=== PATIENT | male | born 1995 | race Caucasian/White ===

== ENCOUNTER 2019-11-24 11:38 | Emergency (ER) | payer OTHER ==
--- OUTSIDE RECORDS SUMMARY | 2019-11-24 11:44 | XMS REPORT ---
:1995 Author Organization [facility] t Address [address] [place] [address] Dr. [address] [place] [id number] Care Team Providers Name Role Phone Unavailable Unavailable Unavailable Problems This patient has no known problems. Allergies, Adverse Reactions, Alerts This patient has no known allergies or adverse reactions. Medications This patient has no known medications. Procedures This patient has no known procedures. Encounters Start End Encounter Admission Attending Care Care Encounter Source Date/Time Date/Time Type Type Clinicians Facility Department ID 2019-05-21 2019-05-21 Outpatient [facility] - [facility] - [id number] Rheumat 09:23:00 09:23:00 Rheumatol Rheumatolog [facility]logy [facility] 2019-01-26 2019-01-26 Outpatient [facility] - [facility] - [id number] Rheumat 15:25:00 15:25:00 Rheumatol Rheumatolog [facility]logy [facility] 2019-01-22 2019-01-22 Outpatient PRL - PRL - [id number] Rheumat 11:45:00 11:45:00 Rheumatol Rheumatolog [facility]logy [facility] Results This patient has no known results.
--- OUTSIDE RECORDS SUMMARY | 2019-11-24 11:44 | XMS REPORT | Continuity of Care Document ---
:1995 Author Organization [facility] Care Team Providers Name Role Phone [facility] Unavailable Un available Problems Problem Status Onset Classification Date Comments Sourc e Date Reported Chronic gout Active Problem 05/22/2019 [facility] Pain in joint Active Diagnosis 02/15/2019 [facility] multiple sites Medications Medication Details Route Status Patient Ordering Order Source Instructions Provider Date Meloxicam 1 tablet Orally Active 15 MG Orally Vo 01/28/20 [facility] day [facility] PredniSONE 1 tablet Orally Active 20 mg Orally Vo 01/23/20 [facility] Allopurinol 1 tablet Orally Active 300 MG Orally Vo [facility] twice a day of [facility] (bid) Colchicine 2 with orally Active 0.6 MG orally Vo [facility] flare then every day (qd) of [facility] 1 hour as needed later as needed then Adderall XR 1 capsule Orally Active 30 MG Orally Vo [facility] in the Once a day of [facility] morning Ibuprofen 3 tablets Orally Active 200 MG Orally Vo [facility] with food three times a of [facility] or milk as day (tid) as needed needed (prn) Adderall XR 1 capsule Orally Active 10 MG Orally Vo [facility] in the Once a day [facility] morning Allergies, Adverse Reactions, Alerts Substance Category Reaction Severity Reaction Status Date Comments S ource type Reported N.K.D.A. Adverse Info Not Adverse Active Rheu m Reaction Available Reaction [facility] Immunizations No Data Provided for This Section Results No Data Provided for This Section Pathology Reports No Data Provided for This Section Diagnostic Reports No Data Provided for This Section Consultation Notes No Data Provided for This Section Discharge Summaries No Data Provided for This Section History and Physicals No Data Provided for This Section Vital Signs Vital Sign Value Date Comments Source Weight 259.8 01/22/2019 [facility] Height 70 01/22/2019 [facility] Heart Rate 103 01/22/2019 [facility] Diastolic (mm Hg) 85 01/22/2019 [facility] Systolic (mm Hg) 126 01/22/2019 [facility] Encounters No Data Provided for This Section Procedures No Data Provided for This Section Assessment and Plan No Data Provided for This Section Plan of Care No Data Provided for This Section Social History No Data Provided for This Section Family History No Data Provided for This Section Advance Directives No Data Provided for This Section Functional Status No Data Provided for This Section
--- OUTSIDE RECORDS SUMMARY | 2019-11-24 11:44 | XMS REPORT ---
:1995 Author Organization [employer] Care Team Providers Name Role Phone Leticia Maldonado Provider Role Unavailable Allergies No Known Allergies Problems Problem Type Condition Code Onset Dates Condition Statu s Problem Chronic gout M1A.9XX0 Active Medications Medication Code System Code Instructions Start Date End Date Status Dosage Meloxicam [facility] [id number] 15 MG Orally Once January 27, Feb 26, Active 1 tablet a day 2018 2018 Results No Known Results Summary Purpose [employer] Submission
--- OUTSIDE RECORDS SUMMARY | 2019-11-24 11:44 | XMS REPORT ---
:1995 Author Organization [employer] Care Team Providers Name Role Phone Leticia Maldonado Provider Role Unavailable Allergies, Adverse Reactions, Alerts Substance Reaction Event Type N.K.D.A. Info Not Available Non Drug Allergy Problems Problem Type Condition Code Onset Dates Condition Statu s Assessment Pain in joint involving multiple M25.50 Active sites Problem Chronic gout M1A.9XX0 Active Assessment Chronic gout M1A.9XX0 Active Medications Medication Code Code Instructions Start End Date Status Dosage System Date Allopurinol NDC 25567294553 300 MG Orally Active 1 tablet twice a day (bid) Colchicine NDC 54702930916 0.6 MG orally Active 2 w ith every day (qd) flare the n as needed 1 hour later as needed then Adderall XR ND 93561939027 30 MG Orally Active 1 c apsule Once a day in the morning PredniSONE NDC 91028405029 20 mg Orally January 22, January 27, Active 1 tablet Once a day 2018 2018 Ibuprofen NDC 83304863921 200 MG Orally Active 3 ta blets three times a with food day (tid) as or milk as needed (prn) needed Adderall XR ND 70268166116 10 MG Orally Active 1 c apsule Once a day in the morning Vital Signs Date/Time: January 22, 2019 BMI 37.27 Index Weight 259.8 lbs Height 70 in Cardiac Monitoring Heart Rate 103 /min Blood Pressure Diastolic 85 mm Hg Blood Pressure Systolic 126 mm Hg Results No Known Results Summary Purpose [employer] Submission
--- OUTSIDE RECORDS SUMMARY | 2019-11-24 11:44 | XMS REPORT ---
:1995 Author Organization [employer] Care Team Providers Name Role Phone Leticia Maldonado Provider Role Unavailable Allergies No Known Allergies Problems Problem Type Condition Code Onset Dates Condition Statu s Problem Chronic gout M1A.9XX0 Active Medications No Known Medications Results No Known Results Summary Purpose [employer] Submission
--- NOTE | 2019-11-24 12:22 | ER ---
Nurse's Notes [facility] Name: Jeanna Nicolas Age: 23 yrs Sex: Male : 1995 Arrival Date: 11/24/2019 Time: 11:40 Bed 17 Private MD: Jacques Schneider Diagnosis: Nausea Presentation: 11/23 11:51 Chief complaint: Parent and/or Guardian states: Mother reports that earlier today ss patient was caught eating a bag of raw, uncooked chicken nuggets. Pt has a history of autism, with an interest in food. Mother contacted ASHLYN Schneider, who instructed them to come to ER to possibly have his stomach pumped. PT c/o mild abd discomfort. Coronavirus screen: Proceed with normal triage. Ebola Screen: Patient denies exposure to infectious person. Patient denies travel to an Ebola-affected area in the 21 days before illness onset. Initial Sepsis Screen: Does the patient meet any 2 criteria? HR > 90 bpm. Does the patient have a suspected source of infection? No. Patient's initial sepsis screen is negative. Risk Assessment: Do you want to hurt yourself or someone else? Patient reports no desire to harm self or others. Onset of symptoms was November 24, 2019. 11:51 Method Of Arrival: Ambulatory ss 11:51 Acuity: ALLY 3 ss Historical: - Allergies: 11:54 No Known Allergies; ss - PMHx: 11:54 ADD/ADHD; Autism; Gout; Seizures; ss - PSHx: 11:54 None; ss - Immunization history:: Adult Immunizations up to date. - Social history:: Smoking status: Patient denies any tobacco usage or history of. Patient/guardian denies using alcohol, street drugs, The patient lives with family. - Family history:: not pertinent. Screenin:33 Abuse screen: Denies threats or abuse. Nutritional screening: No deficits noted. Tuberculosis screening: No symptoms or risk factors identified. Fall Risk None identified. Assessment: 12:15 General: Appears in no apparent distress. Behavior is cooperative, Pt is autistic. Pain: Complains of pain in epigastric area. Neuro: Level of Consciousness is awake, alert, obeys commands. Cardiovascular: Heart tones S1 S2 present. Respiratory: Airway is patent Respiratory effort is even, unlabored, Respiratory pattern is regular, symmetrical. GI: Abdomen is obese, Bowel sounds present X 4 quads. Reports epigastric pain, Patient currently denies diarrhea, vomiting. : No signs and/or symptoms were reported regarding the genitourinary system. EENT: No signs and/or symptoms were reported regarding the EENT system. Derm: No signs and/or symptoms reported regarding the dermatologic system. Musculoskeletal: No signs and/or symptoms reported regarding the musculoskeletal system. Vital Signs: 11:51 BP 124 / 77; Pulse 114; Resp 16; Temp 97.2(TE); Pulse Ox 98% on R/A; Weight 108.86 kg; Height 5 ft. 11 in. (180.34 cm); 11:51 Body Mass Index 33.47 (108.86 kg, 180.34 cm) ED Course: 11:40 Patient arrived in ED. am2 11:41 Jacques Schneider is Private Physician. am2 11:53 Triage completed. 11:54 Arm band placed on right wrist. 11:59 Teddy Arzate MD is Attending Physician. [facility] 12:09 Arlette Webster, RN is Primary Nurse. 12:33 No provider procedures requiring assistance completed. Patient did not have IV access ah during this emergency room visit. 12:35 Patient has correct armband on for positive identification. Adult w/ patient. Administered Medications: No medications were administered Outcome: 12:20 Discharge ordered by . [facility] 12:33 Discharged to home ambulatory. 12:33 Condition: good 12:33 Discharge instructions given to patient, Instructed on discharge instructions, follow up and referral plans. medication usage, Demonstrated understanding of instructions, follow-up care, medications, Prescriptions given X 1. 12:35 Patient left the ED. Signatures: Tabatha Tee RN RN Shanti Stockton 2 Teddy Arzate MD MD ma2 Harris, Amy, RN RN
--- NOTE | 2019-11-24 12:24 | EDPHYS ---
Physician Documentation [facility] Name: Jeanna Nicolas Age: 23 yrs Sex: Male : 1995 Arrival Date: 11/24/2019 Time: 11:40 Bed 17 Private MD: Jacques Schneider ED Physician Teddy Arzate HPI: 11/23 12:17 This 23 yrs old Male presents to ER via Ambulatory with complaints of ma2 Abdominal Pain - ate frozen chicken nuggets. 12:17 The patient presents with no complaint, he is here to get a medical financial health counselor on what ma2 should he do after he ingested raw meet. i advised for expectant management . Onset: The symptoms/episode began/occurred suddenly, 1 hour(s) ago. Associated signs and symptoms: Pertinent positives: Pertinent negatives: nausea, vomiting, and diarrhea, nausea and vomiting, anorexia, blood in stools, chest pain, diarrhea, headache, hematuria, palpitations, shortness of breath, vomiting, vomiting blood. Severity of pain: At its worst the pain was no pain, in the emergency department the pain is unchanged. The patient has not experienced similar symptoms in the past. Historical: - Allergies: 11:54 No Known Allergies; ss - PMHx: 11:54 ADD/ADHD; Autism; Gout; Seizures; ss - PSHx: 11:54 None; ss - Immunization history:: Adult Immunizations up to date. - Social history:: Smoking status: Patient denies any tobacco usage or history of. Patient/guardian denies using alcohol, street drugs, The patient lives with family. - Family history:: not pertinent. ROS: 12:17 Constitutional: Negative for fever, chills, and weight loss. ma2 12:17 All other systems are negative. Exam: 12:17 Constitutional: This is a well developed, well nourished patient who is awake, alert, ma2 and in no acute distress. Chest/axilla: Normal chest wall appearance and motion. Nontender with no deformity. No lesions are appreciated. Cardiovascular: Regular rate and rhythm with a normal S1 and S2. No gallops, murmurs, or rubs. Normal PMI, no JVD. No pulse deficits. Respiratory: Lungs have equal breath sounds bilaterally, clear to auscultation and percussion. No rales, rhonchi or wheezes noted. No increased work of breathing, no retractions or nasal flaring. Abdomen/GI: Soft, non-tender, with normal bowel sounds. No distension or tympany. No guarding or rebound. No evidence of tenderness throughout. MS/ Extremity: Pulses equal, no cyanosis. Neurovascular intact. Full, normal range of motion. Neuro: Awake and alert, GCS 15, oriented to person, place, time, and situation. Cranial nerves II-XII grossly intact. Motor strength 5/5 in all extremities. Sensory grossly intact. Cerebellar exam normal. Normal gait. Vital Signs: 11:51 BP 124 / 77; Pulse 114; Resp 16; Temp 97.2(TE); Pulse Ox 98% on R/A; Weight 108.86 kg; ss Height 5 ft. 11 in. (180.34 cm); 11:51 Body Mass Index 33.47 (108.86 kg, 180.34 cm) MDM: 11:59 Patient medically screened. in2 12:17 Differential diagnosis: gastroesophageal reflux disease, Irritable bowel syndrome. Data ma2 reviewed: vital signs, nurses notes. Counseling: I had a detailed discussion with the patient and/or guardian regarding: the historical points, exam findings, and any diagnostic results supporting the discharge/admit diagnosis, the presence of at least one elevated blood pressure reading (>120/80) during this emergency department visit, lab results, the need for outpatient follow up. Response to treatment: There is no appreciated change of the patient's symptoms at this time. Administered Medications: No medications were administered Disposition: 11/24/19 12:20 Discharged to Home. Impression: Nausea. - Condition is Stable. - Discharge Instructions: Food Poisoning, [id number]. - Prescriptions for Zofran 4 mg Oral Tablet - take 1 tablet by ORAL route every 12 hours As needed; 20 tablet. - Medication Reconciliation Form, Thank You Letter, Antibiotic Education, Prescription Opioid Use form. - Follow up: Private Physician; When: Tomorrow; Reason: Continuance of care. Signatures: Tabatha Tee RN RN Teddy Arzate MD MD ma2 Arlette Webster RN RN Corrections: (The following items were deleted from the chart) 12:35 12:20 11/24/2019 12:20 Discharged to Home. Impression: Nausea. Condition is Stable. ah Forms are Medication Reconciliation Form, Thank You Letter, Antibiotic Education, Prescription Opioid Use. Follow up: Private Physician; When: Tomorrow; Reason: Continuance of care. ma2
[2019-11-24 12:58] VITALS: BP 124/77; TEMP 97.2; O2SAT 98
== END 2019-11-24 12:35 | disposition home or self-care (01) ==
LOC: ER 11:38
DX: R11.0 Nausea (principal); F84.0 Autistic disorder
CPT/HCPCS: 99282

== ENCOUNTER 2021-02-08 10:39 | Emergency (ER) | payer OTHER ==
--- OUTSIDE RECORDS SUMMARY | 2021-02-08 10:41 | XMS REPORT | Continuity of Care Document ---
:1995 Author Organization [facility] t Address [address] [place] [address] Care Team Providers Name Role Phone Unavailable Unavailable Unavailable Problems Condition Condition Condition Status Onset Resolution Last Treating Co mments Source Name Details Category Date Date Treatment Clinician Date Chronic Problem Active 2019-05-22 Romario noreen gout 03:45:18 l Chronic Jl gout Active Problem 05/22/2019 [facility] Pain in Diagnosis Active 2019-02-15 Me moria joint 02:47:07 l involving Pain in Herm joey multiple joint sites involving multiple sites Active Diagnosis 02/15/2019 [facility] Allergies, Adverse Reactions, Alerts This patient has no known allergies or adverse reactions. Medications Ordered Filled Start Stop Current Ordering Indication Dosage Frequency Signature Comments Components Source Medication Medication Date Date Medication? Clinician (SIG) Name Name Ibuprofen 2019-0 Yes Leticia 3 tablets [facility] 8-05 Vo with food l 02:47: or milk as Jl 07 needed Adderall XR 2019-0 Yes Leticia 1 capsule [facility] 8-05 Vo in the l 02:47: morning Jl 07 Allopurinol 2019-0 Yes Leticia 1 tablet [facility] 8-05 Vo l 02:47: Jl 07 Colchicine 2019-0 Yes Leticia 2 with [facility] 8-05 Vo flare then l 02:47: 1 hour [place] 07 later as needed then Adderall XR 2019-0 Yes Leticia 1 capsule [facility] 8-05 Vo in the l 02:47: morning Jl 07 Meloxicam 2019-0 Yes Leticia 1 tablet [facility] 7-17 Vo l 00:00: [place] 00 PredniSONE 2019-0 Yes Leticia 1 tablet [facility] 7-12 Vo l 00:00: [place] 00 Vital Signs Vital Name Observation Time Observation Value Comments Source Weight 2019-01-22 16:45:00 [facility] Height 2019-01-22 16:45:00 [facility] [place] Heart Rate 2019-01-22 16:45:00 [facility] [place] Diastolic (mm Hg) 2019-01-22 16:45:00 Mem orial [place] Systolic (mm Hg) 2019-01-22 16:45:00 Romario rial [place] Procedures This patient has no known procedures. Encounters Start End Encounter Admission Attending Care Care Encounter Source Date/Time Date/Time Type Type Clinicians Facility Department ID 2019-05-21 2019-05-21 Outpatient [facility] - [facility] - [id number] [facility] 09:23:00 09:23:00 Rheumatol [facility]olog [facility] 2019-01-26 2019-01-26 Outpatient [facility] - [facility] - [id number] [facility] 15:25:00 15:25:00 Rheumatol [facility]olog [facility]Works [facility]gy y [facility] 2019-01-22 2019-01-22 Outpatient [facility] - [facility]L - [id number] [facility]inic 11:45:00 11:45:00 Rheumatol Rheumatolog [facility]Works [facility]gy y [facility] Results This patient has no known results.
--- NOTE | 2021-02-08 11:30 | RAD REPORT ---
EXAM DESCRIPTION: CT - Head Brain Wo Cont - 02/08/2021 11:02 am CLINICAL HISTORY: Seizure COMPARISON: 2015 TECHNIQUE: Computed axial tomography of the head was obtained. IV contrast was not requested. All CT scans are performed using dose optimization technique as appropriate and may include automated exposure control or mA/KV adjustment according to patient size. FINDINGS: An intracranial bleed is not seen . The ventricles are normal in caliber. No extra-axial fluid collection is noted. Fluid within the sinuses/ mastoids is not seen. IMPRESSION: No acute intracranial abnormality is seen. If patient's symptoms persist MRI of the bra in would be recommended.
[2021-02-08 11:31] LABS: Absolute Lymphocytes (CBC) 0.8 K/uL (0.7-4.9); Basophils % 0.8 % (0-1.3); Hematocrit 38.3 % (39.6-49.0); Lymphocytes % 8.8 % (15.3-44.8); MPV 8.7 fL (7.6-11.3); RBC Red Blood Cell Count 5.17 M/uL (4.33-5.43)
[2021-02-08 11:35] LABS: Protime INR 0.97
[2021-02-08 11:53] LABS: ALT/SGPT 59 U/L (12-78); AST/SGOT 32 U/L (15-37); Albumin 4.1 g/dL (3.4-5.0); Alkaline Phosphatase 74 U/L (45-117); BUN Blood Urea Nitrogen 13 mg/dL (7-18); Bicarbonate 26 mmol/L (21-32); Bilirubin Direct < 0.1 mg/dL (0-0.2); Bilirubin Total 0.2 mg/dL (0.2-1.0); Glucose Level 138 mg/dL (74-106); Potassium 3.7 mmol/L (3.5-5.1); Protein, Total 8.6 g/dL (6.4-8.2); Sodium Level 140 mmol/L (136-145); Troponin (Emerg Dept Use Only) < 0.02 ng/mL (0.0-0.045)
[2021-02-08] MEDS ORDERED: NA CHLORIDE 0.9% 1,000 ML ONE (12:00)
--- NOTE | 2021-02-08 14:22 | EDPHYS ---
Physician Documentation [facility] Name: Jeanna Nicolas Age: 25 yrs Sex: Male : 1995 Arrival Date: 02/08/2021 Time: 10:41 Bed 5 Private MD: Jacques Schneider ED Physician Rohit Rivas HPI: 02/08 11:00 This 25 yrs old Male presents to ER via EMS with complaints of Altered Mental cp Status. 11:00 The patient presents with Patient is a 25-year-old male who was found on the ground by cp his brother upon being found, patient was observed to be combative. Patient was found to have bruising across forehead. Patient has a history of autism and seizures. Mother reports patient has not had a seizure in the past 5 years and so is not currently taking any medications. Initial evaluation patient is alert oriented x3.. 11:00 Possible causes: seizure, the patient has a known seizure history. Associated signs and cp symptoms: Pertinent positives: headache, bruising and swelling across forehead. Patient's baseline: Neuro: alert and fully oriented, Motor: no deficits, Ambulation: walks without assistance, Speech: normal. Historical: - PMHx: 10:45 ADD/ADHD; Autism; Gout; Seizures; hb - Immunization history:: Adult Immunizations up to date. - Social history:: Smoking status: Patient denies any tobacco usage or history of. ROS: 11:05 Constitutional: Negative for fever, poor PO intake. cp 11:05 Cardiovascular: Negative for chest pain. cp 11:05 Respiratory: Negative for cough, shortness of breath, wheezing. 11:05 Abdomen/GI: Negative for abdominal pain, nausea, vomiting, and diarrhea. 11:05 Back: Negative for pain at rest, pain with movement. 11:05 Neuro: Positive for headache, Negative for altered mental status. 11:05 All other systems are negative. Exam: 11:10 Constitutional: The patient appears in no acute distress, alert, awake, cp non-diaphoretic, non-toxic, well developed, well nourished, obese. 11:10 Head/face: Noted is contusion, that is superficial, of the forehead, ecchymosis, that cp is moderate, of the forehead, swelling, that is mild, of the forehead, tenderness, that is mild, of the forehead. 11:10 Eyes: Periorbital structures: appear normal, Pupils: equal, round, and reactive to light and accomodation, Extraocular movements: intact throughout, Conjunctiva: normal, no exudate, no injection, Sclera: no appreciated abnormality, Lids and lashes: appear normal, bilaterally. 11:10 ENT: External ear(s): are unremarkable, Ear canal(s): are normal, clear, TM's: bulging, bilaterally, Nose: External nose: abrasion is noted, bridge of nose, Mouth: Lips: moist, Oral mucosa: pink and intact, moist, Posterior pharynx: Airway: no evidence of obstruction, patent, exudate, is not appreciated. 11:10 Neck: C-spine: vertebral tenderness, is not appreciated, crepitus, is not appreciated, ROM/movement: is normal, is supple, without pain, no range of motions limitations, no nuchal rigidity. 11:10 Chest/axilla: Inspection: normal, Palpation: is normal, no crepitus, no tenderness. 11:10 Cardiovascular: Rate: tachycardic, Rhythm: regular, Heart sounds: murmur, not appreciated, Edema: is not appreciated, JVD: is not appreciated. 11:10 Respiratory: the patient does not display signs of respiratory distress, Respirations: normal, no use of accessory muscles, no retractions, labored breathing, is not present, Breath sounds: are clear throughout, no decreased breath sounds, no stridor, no wheezing. 11:10 Abdomen/GI: Inspection: abdomen appears normal, Bowel sounds: active, all quadrants, Palpation: abdomen is soft and non-tender, in all quadrants. 11:10 Back: pain, is absent, ROM is normal. 11:10 Musculoskeletal/extremity: Exam is negative for decreased range of motion, deformity, injury. 11:10 Neuro: Orientation: to person, place \T\ time. Mentation: is normal, Cerebellar function: is grossly normal, Motor: moves all fours, strength is normal, Sensation: is normal. 13:15 ECG was reviewed by the Attending Physician. cp Vital Signs: 10:43 Pulse 130; Resp 20; Temp 97.3; Pulse Ox 100% on R/A; hb [place] Coma Score: 11:10 Eye Response: spontaneous(4). Verbal Response: oriented(5). Motor Response: obeys cp commands(6). Total: 15. MDM: 10:47 Patient medically screened. kathya 11:00 Differential Diagnosis: CVA, electrolyte abnormality, overdose, seizure, sepsis, volume cp depletion. 14:21 Counseling: I had a detailed discussion with the patient and/or guardian regarding: the cp historical points, exam findings, and any diagnostic results supporting the discharge/admit diagnosis. 14:21 Test interpretation: by ED physician or midlevel provider: ECG. Response to treatment: cp the patient's symptoms have markedly improved after treatment, the patient's condition has returned to base line, patient is well hydrated. and as a result, I will discharge patient. ED course: VSS. No seizure activity observed while monitoring patient in ED. Will discharge to home for continued monitoring. 02/09 14:20 Data reviewed: vital signs, nurses notes, lab test result(s), EKG, radiologic studies, cp CT scan. 02/08 10:47 Order name: Acetaminophen; Complete Time: 12:50 cp 02/08 10:47 Order name: Basic Metabolic Panel; Complete Time: 12:50 cp 02/08 12:50 Interpretation: Normal except: CL 109; GLUC 138; GFR 76. cp 02/08 10:47 Order name: CBC with Diff; Complete Time: 12:50 cp 02/08 12:50 Interpretation: Normal except: HGB 12.2; HCT 38.3; MCV 74.1; MCH 23.5; MCHC 31.8; PLT cp 444; RDW 16.6; CASSIE% 82.4; LYM% 8.8; MN% 3.1; EOSINOPHIL % 4.9. 02/08 10:47 Order name: ETOH Level; Complete Time: 12:50 cp 02/08 10:47 Order name: Hepatic Function; Complete Time: 12:50 cp 02/08 12:51 Interpretation: Normal except: TP 8.6; GLOB 4.5; A/G 0.9. cp 02/08 10:47 Order name: PT-INR; Complete Time: 12:50 cp 02/08 10:47 Order name: Ptt, Activated; Complete Time: 12:50 cp 02/08 10:47 Order name: Salicylate; Complete Time: 12:50 cp 02/08 10:47 Order name: EKG; Complete Time: 10:47 02/08 10:47 Order name: EKG - Nurse/Tech; Complete Time: 13:57 02/08 10:47 Order name: Troponin (emerg Dept Use Only); Complete Time: 12:50 02/08 10:47 Order name: CT Head Brain wo Cont; Complete Time: 11:31 02/08 11:32 Interpretation: Report reviewed. 02/08 10:47 Order name: IV Saline Lock; Complete Time: 11:18 02/08 10:47 Order name: Labs collected and sent; Complete Time: 11:18 02/08 10:47 Order name: Suicide Screening ([place]); Complete Time: 11:18 EC/29 13:15 Rate is 112 beats/min. Rhythm is regular. VA interval is normal. QRS interval is cp normal. QT interval is normal. T waves are Inverted in leads III, aVR. Interpreted by me. Reviewed by me. Administered Medications: 11:41 Drug: NS 0.9% 1000 ml Route: IV; Rate: 1 bolus; Site: right antecubital; hb Disposition: 14:30 Chart complete. 02/09 06:26 Co-signature as Attending Physician, Rohit Rivas MD I agree with the assessment and kathya plan of care. Disposition Summary: 02/08/21 14:21 Discharge Ordered Location: Home cp Problem: new cp Symptoms: have improved cp Condition: Stable cp Diagnosis - Other seizures cp Followup: cp - With: Doug Dhillon MD - When: 2 - 3 days - Reason: Recheck today's complaints Discharge Instructions: - Discharge Summary Sheet cp - Electroencephalogram, Adult cp - Seizure, Adult cp Forms: - Medication Reconciliation Form cp - Thank You Letter cp - Antibiotic Education cp - Prescription Opioid Use cp Signatures: Dispatcher [employer] Rohit Thurston MD MD cha Page, Corey, PA PA cp Viviane Hayes, RN RN
--- NOTE | 2021-02-08 14:22 | ER ---
Nurse's Notes [facility] Name: Jeanna Nicolas Age: 25 yrs Sex: Male : 1995 Arrival Date: 02/08/2021 Time: 10:41 Bed 5 Private MD: Jacques Schneider Diagnosis: Other seizures Presentation: 02/08 10:43 Chief complaint: EMS states: Found face down, agonal respirations by mother, confused, hb combative. Hx of seizures. Bruising and abrasions note dto forehead. Coronavirus screen: At this time, the client does not indicate any symptoms associated with coronavirus-19. Ebola Screen: No symptoms or risks identified at this time. Initial Sepsis Screen:. Risk Assessment: Do you want to hurt yourself or someone else? Patient reports no desire to harm self or others. Onset of symptoms was February 08, 2021. 10:43 Method Of Arrival: EMS: [facility] 10:43 Acuity: ALLY 2 hb Triage Assessment: 10:45 General: Appears in no apparent distress. Behavior is restless, uncooperative. Pain: hb Pain Unable to use pain scale. FLACC scale score is 3 out of 10. EENT: No signs and/or symptoms were reported regarding the EENT system. Neuro: Level of Consciousness is awake, alert, confused, Oriented to person. Cardiovascular: Patient's skin is warm and dry. Respiratory: Respiratory effort is even, unlabored, Respiratory pattern is regular, symmetrical. GI: No signs and/or symptoms were reported involving the gastrointestinal system. : No signs and/or symptoms were reported regarding the genitourinary system. Derm: Skin is pink, warm \T\ dry. Musculoskeletal: No signs and/or symptoms reported regarding the musculoskeletal system. Injury Description: abrasions and bruising noted to entire forehead. Historical: - PMHx: 10:45 ADD/ADHD; Autism; Gout; Seizures; hb - Immunization history:: Adult Immunizations up to date. - Social history:: Smoking status: Patient denies any tobacco usage or history of. Screenin:00 Abuse screen: Denies threats or abuse. Denies injuries from another. Nutritional hb screening: No deficits noted. Tuberculosis screening: No symptoms or risk factors identified. Fall Risk None identified. Assessment: 10:55 General: see triage assessment . hb 11:45 Reassessment: Patient appears in no apparent distress at this time. Patient and/or hb family updated on plan of care and expected duration. Pain level reassessed. Mother at bedside. 12:45 Reassessment: Patient appears in no apparent distress at this time. No changes from hb previously documented assessment. Patient and/or family updated on plan of care and expected duration. Pain level reassessed. 13:45 Reassessment: Patient appears in no apparent distress at this time. No changes from hb previously documented assessment. Patient and/or family updated on plan of care and expected duration. Pain level reassessed. 14:35 Reassessment: Patient appears in no apparent distress at this time. No changes from hb previously documented assessment. Patient and/or family updated on plan of care and expected duration. Pain level reassessed. Vital Signs: 10:43 Pulse 130; Resp 20; Temp 97.3; Pulse Ox 100% on R/A; hb [place] Coma Score: 11:10 Eye Response: spontaneous(4). Verbal Response: oriented(5). Motor Response: obeys cp commands(6). Total: 15. ED Course: 10:41 Patient arrived in ED. am2 10:41 Jacques Schneider is Private Physician. am2 10:45 Triage completed. hb 10:45 Arm band placed on. hb 10:46 Rohit Romero PA is PHCP. cp 10:46 Rohit Rivas MD is Attending Physician. cp 11:00 Patient has correct armband on for positive identification. Bed in low position. Side hb rails up X 1. 11:02 CT Head Brain wo Cont In Process Unspecified. EDMS 11:10 Inserted saline lock: 20 gauge 24 gauge antecubital area, using aseptic technique. hb ,using aseptic technique. by KJ Blood collected. 11:41 Viviane Hayes, ARCHANA is Primary Nurse. hb 14:21 Doug Dhillon MD is Referral Physician. cp 14:53 No provider procedures requiring assistance completed. IV discontinued, intact, hb bleeding controlled. Administered Medications: 11:41 Drug: NS 0.9% 1000 ml Route: IV; Rate: 1 bolus; Site: right antecubital; hb Outcome: 14:21 Discharge ordered by . cp 14:53 Discharged to home ambulatory, with family. hb 14:53 Condition: stable 14:53 Discharge instructions given to patient, family, Instructed on discharge instructions, follow up and referral plans. medication usage, Demonstrated understanding of instructions, follow-up care, medications. 14:54 Patient left the ED. conchita Signatures: Dispatcher [employer] EDMS Rohit Romero PA PA cp Baxter, Heather, RN RN Shanti Peralta
[2021-02-08 22:21] VITALS: TEMP 97.3; O2SAT 100
== END 2021-02-08 14:54 | disposition home or self-care (01) ==
LOC: ER 10:39
DX: G40.89 Other seizures (principal)
CPT/HCPCS: 93005; 85025; 80048; 36415; 80320; 80329 ×2; 85610; 80076; 85730; 84484; 70450; 99284; J7030